=== PATIENT | female | born 1995 | race Caucasian/White ===

== ENCOUNTER 2020-05-16 09:32 | Inpatient (IN) ==
[2020-05-16] MEDS ORDERED: OXYTOCIN 30 UNITS/500 ML BAG IV PRN ×3 (09:35→17:12)
[2020-05-16] MEDS ORDERED: PATIENT'S HEIGHT AND/OR WEIGHT NEEDED SCH (09:45)
--- NOTE | 2020-05-16 10:06 | History & Physical Report ---
Date of Service May 16, 2020 Assessment & Plan (1) : VSS Fetus cat 1 Labor - will start with pit GBS neg Epidural PRN Admission and Anticipated Discharge Date Admission Date: May 16, 2020 History of Present Illness Chief Complaint: IOL Primary Care Provider: Sara Andujar 25 y/o at 40 4/7 wga w/ JENNY 05/12/20 by LMP 08/06/19 c/w 1st [facility] who presents for IOL. +FM; denies ctx, LOF, VB. Had hwang bulb placed last evening for cervical ripening and fell out around 1030pm PNI: None Allergies Allergy/AdvReac Type Severity Reaction Status Date / Time No Known Allergies Allergy Verified 05/15/20 11:22 Home Medications Medication Instructions Recorded Confirmed Type prenat.vits,shimon,kkm-[id number]-itnic 1 tab PO DAILY 09/26/19 05/15/20 History Patient History Medical History Varicella vaccine Surgical History H/O oral surgery Family History Mother Thyroid disease Grandmother Heart disease Social History Smoking Status: Former smoker Tobacco Type: Cigarettes Second Hand Exposure: Yes; Hx Alcohol Use: No Hx Substance Use: No Preferred Language: Maltese Communication Ability: Effective 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 Beliefs That Will Affect Care: None marital status: Single marital status details: ABIGAIL Chambers [phone] Current Living Situation: Significant Other Current Living Situation Comment: lives with FOB and daughter, 1 cat, does not change litter current occupational status: employed current occupation: [employer] Feels Safe at Home: Yes Assistive Devices: None OB History G1 2013 VAVD at 41 wks G2 current [employer] History Menarche 10 Periods regular [id number] Last pap 12/2018 inadequate but repeat normal No hx STIs Physical Exam Constitutional: WD/WN, vitals as above no acute distress Respiratory: normal respiratory effort; no respiratory distress and no labored breathing Gastrointestinal (Abdomen): Percussion/Palpation: abdomen soft; abdomen nontender Genitourinary: OB Exam Abdomen: + vertex (by sutures) and + estimated weight (8-9lbs) Manual OB Exam: + cervical dilation 4 cm, + cervical effacement 70% and + station high OB Exam Monitor Tracing: + external FHT monitor used, + external uterine monitor used and + category I (125/mod/+accel/- decel) Results & Data ([facility]) Vital Signs (Past 12 Hours) Vital Signs Pulse BP 05/16/20 09:37 72 103/57 L Laboratory Results O+, antibody neg RPR NR Hep B NR rubella immune GC/CT neg HIV neg GBS neg ant plac low risk cfDNA cf/sma neg MSAFP neg Coding Level of Care Code None Diagnoses Z34.90
[2020-05-16 10:09] LABS: Mean Corpuscular Hemoglobin 31.4 pg (25-34); Mean Corpuscular Hgb Conc 34.3 g/dL (32-36); Mean Corpuscular Volume 91.6 fL (80-100); Mean Platelet Volume 10.4 fL (7.4-10.4); Platelet Count 152 K/uL (130-400); RDW Coefficient of Variation 12.9 % (11.5-14.5); RDW Standard Deviation 43.3 fL (36.4-46.3); Red Blood Count 3.82 M/uL (4.2-5.4); White Blood Count 9.62 K/uL (4.8-10.8)
[2020-05-16] MEDS: LACTATED RINGER'S 1,000 ML IV PRN ×3 (10:34→15:57)
--- NOTE | 2020-05-16 12:53 | Labor Progress Brief Note ---
Date of Service May 16, 2020 Subjective Noting ctx at 4/10, still tolerable Assessment & Plan (1) : VSS Fetus cat 1 Labor - continue pit titration, will likely arom with next check GBS neg Epidural PRN Admission and Anticipated Discharge Date Admission Date: May 16, 2020 Physical Exam Genitourinary: Manual OB Exam: + cervical dilation 4 cm, + cervical effacement 70% and + station high OB Exam Monitor Tracing: + external FHT monitor used, + external uterine monitor used and + category I (125/mod/+accel/-decel) Results & Data ([facility]) Vital Signs (Past 12 Hours) Vital Signs Temp Pulse Resp BP 05/16/20 12:42 99.7 F H 18 05/16/20 12:35 73 92/51 L 05/16/20 12:00 18 05/16/20 11:42 73 97/61 L 05/16/20 11:30 18 05/16/20 11:00 18 05/16/20 09:55 97.5 F L 72 103/57 L 05/16/20 09:37 72 103/57 L Coding Level of Care Code None Diagnoses Z34.90
[2020-05-16] MEDS ORDERED: SODIUM CHLORIDE 0.9% INJ 10 ML VIAL ONE (15:39)
[2020-05-16] MEDS ORDERED: BUPIVACAINE 0.25% 30 ML VIAL ONE (15:39)
[2020-05-16] MEDS ORDERED: ePHEDrine sulfate 50 MG/ML AMP ONE (15:39)
[2020-05-16] MEDS ORDERED: fentaNYL citrate 100 MCG/2 ML VIAL ONE (15:40)
[2020-05-16] MEDS ORDERED: fentaNYL 2MCG/ML ROPIVACAINE 1.25MG/ML 100 ML BAG EPI ONE (15:40)
[2020-05-16] MEDS ORDERED: fentaNYL 2MCG/ML ROPIVACAINE 1.25MG/ML 100 ML BAG EPI PRN (15:41)
[2020-05-16] MEDS ORDERED: NALOXONE HCL 0.4 MG/1 ML VIAL/CARP IV PRN (15:41)
[2020-05-16] MEDS ORDERED: ePHEDrine sulfate 50 MG/ML AMP IV PRN (15:41)
[2020-05-16] MEDS ORDERED: NALOXONE HCL 1 MG in SODIUM CHLORIDE 0.9% 1000ML 1,000 ML IV PRN (15:41)
[2020-05-16] MEDS ORDERED: diphenhydrAMINE 50 MG/ML VIAL IV PRN (15:41)
[2020-05-16] MEDS ORDERED: ONDANSETRON INJ 2 MG/ML 2 ML VIAL IV PRN (15:41)
--- NOTE | 2020-05-16 15:43 | Anesthesiology Consultation ---
Date of Service May 16, 2020 Assessment & Plan (1) Encounter for pre-operative examination: Chart Review Chart Review: Patient NOT seen in Pre Admission Testing and Acceptable Risk for Labor Epidural Consults Requested none History Height/Weight Height: 5 ft 7 in Weight: 81.737 kg Allergies Allergy/AdvReac Type Severity Reaction Status Date / Time No Known Allergies Allergy Verified 05/16/20 13:41 Medications Home Medications Medication Instructions Recorded Confirmed Last Taken prenat.vits,shimon,ske-erfz-omujt 1 tab PO DAILY 09/26/19 05/16/20 05/14/20 Active Medications Generic Name Dose Route Start Last Admin Trade Name Freq PRN Reason Stop Dose Admin Lactated Ringer's 1,000 mls @ 125 mls/hr 05/16/20 09:35 05/16/20 15:57 Lr IV 05/18/20 09:34 999 mls/hr .Q8H PRN Administration L&D Protocol Protocol Oxytocin 30 units in 500 mls @ 7 mls/hr 05/16/20 10:24 05/16/20 14:39 Pitocin IV 05/18/20 10:23 0.42 units/hr .Q24H PRN 7 mls/hr Labor Induction/Augmentation Titration Protocol 0.42 UNITS/HR Past Medical History Medical History (Updated 05/16/20 @ 15:43 by Rusty Romo MD) Varicella vaccine Exercise / Class Metabolic Activity II 4-5 Yardwork/Stairs/Walk up hill Past Family History Family History Mother Thyroid disease Grandmother Heart disease Past Surgical History Surgical History H/O oral surgery Past Anesthesia History No Hx of Anesthesia Complications and No Family Hx of Anesthesia Complications History of PONV No Hx of PONV and No Hx of Motion Sickness Social History Smoking Status: Former smoker tobacco type: cigarettes Hx Alcohol Use: No Hx Substance Use: No substance use type: does not use Physical Exam Vital Signs Last Vital Signs Temp 36.6 C 05/16/20 15:45 Pulse 68 05/16/20 15:45 Resp 20 05/16/20 15:45 BP 104/62 05/16/20 14:00 Pulse Ox 100 05/16/20 15:45 Testing Laboratory Results 05/16/20 09:58
[2020-05-16] MEDS ORDERED: ACETAMINOPHEN 325 MG TAB PO PRN (17:12)
[2020-05-16] MEDS ORDERED: DIPHTHERIA/TETANUS/PERTUSSIS 0.5 ML SYR/VIAL IM ONE (17:12)
[2020-05-16] MEDS ORDERED: SUPERCREAM 0.870% 15 GM JAR EXT PRN (17:12)
[2020-05-16] MEDS ORDERED: IBUPROFEN 600 MG TAB PO PRN (17:12)
[2020-05-16] MEDS ORDERED: HYDROCORTISONE ACETATE 25 MG SUPP PR PRN (17:12)
[2020-05-16] MEDS ORDERED: LACTATED RINGER'S 1,000 ML IV SCH (17:12)
[2020-05-16] MEDS ORDERED: BENZOCAINE 20% AER SPR 82.5 GM CAN EXT PRN (17:12)
--- NOTE | 2020-05-16 17:58 | Anesthesia Procedure Note ---
Date of Service May 16, 2020 Anesthesia Post Epidural Note Vital Signs Vital Signs: Temp Pulse Resp BP Pulse Ox 36.6 C 72 18 110/63 92 05/16/20 15:45 05/16/20 17:49 05/16/20 16:30 05/16/20 17:49 05/16/20 16:15 Notes Mental Status: alert / awake / arousable and participated in evaluation Patient Amnestic to Procedure: No Nausea / Vomiting: adequately controlled Pain: adequately controlled Airway Patency, RR, SpO2: stable & adequate BP & HR: stable & adequate Hydration State: stable & adequate Neuraxial Anesthesia: was administered and sensory block is resolving Anesthetic Complications: no major complications apparent and Pt Satisfied with anesthetic care Epidural: Removed without complications and With tip intact
--- NOTE | 2020-05-16 20:18 | Delivery Summary ---
Vaginal Delivery Summary Date of Service May 16, 2020 Vaginal Delivery Summary PREOPERATIVE DIAGNOSIS: 1. Single intrauterine at 40 4/7 wga 2. Induction of labor POSTOPERATIVE DIAGNOSIS: 1. Single intrauterine at 40 4/7 wga 2. Induction of labor 3. Delivered PROCEDURE: 1. Normal spontaneous vaginal delivery. SURGEON: Lyndsey Ding MD ANESTHESIA: Epidural. ESTIMATED BLOOD LOSS: 300 mL FLUIDS: Continuous LR. URINE OUTPUT: None. COMPLICATIONS: None. CONDITION: Stable. INDICATIONS: 25 y/o at 40 4/7 wga w/ JENNY 05/12/20 by LMP 08/06/19 c/w 1st [facility] who presents for IOL. +FM; denies ctx, LOF, VB. Had hwang bulb placed last evening for cervical ripening and fell out around 1030pm. She was started on pitocin for induction. She underwent artificial rupture of membranes. She received an epidural for pain control. She then progressed to complete. FINDINGS: A viable female infant with Apgars of 8 and 9 at 1 and 5 minutes respectively, weight pending SPECIMEN: None. OPERATIVE REPORT: The patient progressed to 10 cm, 100% effaced and +2 station, pushed over intact perineum with anesthesia to deliver a viable female , Apgars as above. Head of delivered in MARY position. No nuchal cord was present. Body and shoulders were delivered without difficulty. was delivered to maternal abdomen and nursing staff. Delayed cord clamping was performed for 60 seconds. Cord was clamped and cut. Cord blood was obtained. Placenta delivered spontaneously intact with 3-vessel cord. IV oxytocin and fundal massage were given for excellent hemostasis. Vagina, cervix, placenta and perineum were inspected. First degree laceration was noted and repaired in the usual fashion using 4-0 Vicryl. Sponge and needle counts correct x2. No sponges were left behind. Mother and stable in immediate period. [facility] Vaginal Delivery Charge Vaginal Delivery Codes: 07513 global code for the antepartum, delivery, and post-
[2020-05-16] MEDS: DOCUSATE SODIUM 100 MG CAP PO SCH (21:21)
[2020-05-17 06:28] LABS: Hematocrit (blood only) 33.6 % (37-47); Hemoglobin 11.3 g/dL (12.0-16.0); Mean Corpuscular Hemoglobin 30.4 pg (25-34); Mean Corpuscular Hgb Conc 33.6 g/dL (32-36); Mean Corpuscular Volume 90.3 fL (80-100); Mean Platelet Volume 11.1 fL (7.4-10.4); Platelet Count 150 K/uL (130-400); RDW Coefficient of Variation 12.8 % (11.5-14.5); RDW Standard Deviation 41.6 fL (36.4-46.3); Red Blood Count 3.72 M/uL (4.2-5.4); White Blood Count 12.37 K/uL (4.8-10.8)
--- NOTE | 2020-05-17 07:49 | Obstetrical Progress Note ---
Date of Service May 17, 2020 Assessment & Plan (1) : 25 y/o PP1 s/p , doing well -doing well meeting all pp milestones -O+/rub imm -pt desires dc today, will f/u at 6 wk visit Subjective Ambulation: ambulating normally Voiding: no voiding problems Passing Gas:: Yes Diet Tolerance:: regular diet Lochia:: Small Feeding Type:: breast feeding Pain well managed with medication Review of Systems Denies fevers, chills, n/v, [place], CP, SOB Physical Exam Constitutional WD/WN, vitals as above + not well nourished and no acute distress Respiratory normal respiratory effort; no respiratory distress and no labored breathing Auscultation: lungs clear to auscultation bilaterally Cardiovascular RRR, no murmur, no edema Extremities: no calf tenderness and no pedal edema No calf erythema Gastrointestinal (Abdomen) Inspection/Auscultation: abdomen normal to inspection Percussion/Palpation: abdomen soft; abdomen nontender and no guarding Fundus firm below umbilicus, NT Psychiatric A+Ox3, euthymic affect Results & Data ([facility]) Vital Signs (Past 12 Hours) Vital Signs Temp Pulse Resp BP Pulse Ox 05/17/20 07:30 97.3 F L 60 18 102/64 05/17/20 04:45 97.3 F L 64 16 101/65 98 05/16/20 23:10 98.2 F 53 L 16 120/74 100 Laboratory Results 05/17/20 05/16/20 Range/Units 06:00 09:58 WBC 12.37 H 9.62 (4.8-10.8) K/uL RBC 3.72 L 3.82 L (4.2-5.4) M/uL Hgb 11.3 L 12.0 (12.0-16.0) g/dL Hct 33.6 L 35.0 L (37-47) % MCV 90.3 91.6 (80-100) fL MCH 30.4 31.4 (25-34) pg MCHC 33.6 34.3 (32-36) g/dL RDW Std Deviation 41.6 43.3 (36.4-46.3) fL RDW Coeff of Xavier 12.8 12.9 (11.5-14.5) % Plt Count 150 152 (130-400) K/uL MPV 11.1 H 10.4 (7.4-10.4) fL
[2020-05-17] MEDS ORDERED: PRENATAL VITAMIN 1 TAB PO SCH (08:00)
[2020-05-17] MEDS: DOCUSATE SODIUM 100 MG CAP PO SCH (09:16)
[2020-05-17] MEDS ORDERED: bisacodyL 5 MG TABEC PO SCH (20:00)
[2020-05-18] MEDS ORDERED: bisacodyL 10 MG SUPP PR PRN (06:00)
--- NOTE | 2020-05-28 09:01 | Coding Query ---
CODING QUERY To promote full compliance with coding requirements relating to patient care, provider participation is requested in all cases of multiskill operator uncertainty. Please assist us with the question(s) below: Coding Question(s): Please clarify the reason for induction of labor. Physician's Response(s): post dates IOL Thank you Skylar Bradley Principal Diagnosis: "that condition established after study, to be chiefly responsible for occasioning the admission of the patient to the hospital for care." Co-Existing Principal Diagnosis: "when two or more diagnoses equally meet the criteria for principal diagnosis as determined by the circumstances of admission, diagnostic work up, and/or therapy provided, and the Alphabetic Index, Tabular List, or another coding guideline does not provide sequencing direction, any one of the diagnoses may be sequenced first." "When the physician has documented what appears to be a current diagnosis in the body of the record, but has not included the diagnosis in the final diagnostic statement, the physician should be asked whether the diagnosis should be added." (Source [facility]oding [facility] 2 QTR90. p3-4) SIMONE
== END 2020-05-17 17:00 | disposition home or self-care (01) | DRG 807 ==
LOC: 4S1 09:32 → 4S2 19:00